=== PATIENT | male | born 1995 | race Asian ===

== ENCOUNTER 2021-06-18 22:59 | Emergency (ER) | payer MEDICAID ==
[~2021-06-18] VITALS: Ht 175.3 cm; Wt 77.1 kg
[2021-06-18 22:59] VITALS: BP_SYST 129
[2021-06-18] MEDS ORDERED: PHENYTOIN SODIUM INJ 1,000 MG in NS 100 ML IV ONE (23:15)
[2021-06-18] MEDS ORDERED: levETIRAcetam 1,000 MG in NS 90 ML IV ONE (23:15)
[2021-06-18] MEDS ORDERED: LORazepam 2 MG/ML VIAL IVP ONE (23:15)
[2021-06-18] MEDS ORDERED: TOP25 PO (23:16)
[2021-06-18] MEDS ORDERED: [UNRECOGNIZED DRUG - CODE] PO (23:16)
[2021-06-18] MEDS ORDERED: PHENYTOIN SODIUM 250 MG/5 ML INJ. VIAL IV ONE ×2 (23:26→23:30)
[2021-06-18] MEDS ORDERED: POTASSIUM CHLORIDE 20 MEQ TAB.PRT.SR PO ONE (23:30)
[2021-06-18 23:44] LABS: BASOPHILS % (AUTO) 0.4 % (0.0-2.0); EOSINOPHILS % (AUTO) 0.2 % (0.0-4.0); HEMATOCRIT 42.6 % (36-54); HEMOGLOBIN 14.4 g/dL (14.0-18.0); LYMPHOCYTES # (AUTO) 3.2 K/uL (1.0-5.5); LYMPHOCYTES % (AUTO) 37.1 % (20.5-51.5); MEAN CORPUSCULAR HEMOGLOBIN 30 pg (27-31); MEAN CORPUSCULAR HGB CONC 34 % (32-36); MEAN CORPUSCULAR VOLUME 90 fL (79.0-98.0); MONOCYTES # (AUTO) 1.4 K/uL (0.0-1.0); MONOCYTES % (AUTO) 16.3 % (1.7-9.3); PLATELET COUNT (AUTO) 182 K/uL (130-430); RED BLOOD CELL COUNT(AUTO) 4.74 MIL/uL (4.2-6.2); RED CELL DISTRIBUTION WIDTH 13.6 % (9.0-15.0); WHITE BLOOD COUNT (AUTO) 8.7 K/uL (4.8-10.8)
[2021-06-18 23:48] LABS: ANION GAP 9 (5-15); CALCIUM 9.4 mg/dL (8.4-11.0); CHLORIDE 102 mmol/L (98-107); CREATININE 0.83 mg/dL (0.55-1.30); GLUCOSE 115 mg/dL (70-99); POTASSIUM 3.9 mmol/L (3.5-5.1); SODIUM SERUM 138 mmol/L (136-145); UREA NITROGEN, BLOOD 8 mg/dL (8-21)
[2021-06-18 23:53] LABS: ALANINE AMINOTRANSFERASE 44 U/L (12-78); ALBUMIN 3.9 g/dL (3.4-4.8); ASPARTATE AMINOTRANSFERASE 32 U/L (10-37); TOTAL BILIRUBIN 0.2 mg/dL (0.0-1.0)
[2021-06-18 23:54] LABS: GFR AFRICAN AMERICAN 145 mL/min (>90)
[2021-06-18 23:55] LABS: ALCOHOL, BLOOD < 3 mg/dL (<10)
[2021-06-19] MEDS ORDERED: VALP250C3 PO ×3 (00:05→13:21)
[2021-06-19] MEDS ORDERED: TOP25 PO ×3 (00:05→13:21)
[2021-06-19] MEDS ORDERED: DIPHENHYDRAMINE INJ 50 MG/ML VIAL ONE (00:23)
[2021-06-19 00:57] VITALS: BP_SYST 108
== END 2021-06-19 00:57 | disposition home or self-care (01) ==
LOC: SED 22:59
DX: G40.909 Epilepsy, unspecified, not intractable, without status epilepticus (principal); Z79.899 Other long term (current) drug therapy
CPT/HCPCS: 36415; 80053; 85025; 96365; 96368; 96375; 99284; G0482; J1165; J1200; J2060